=== PATIENT | female | born 1960 | race Caucasian/White ===

== ENCOUNTER 2018-11-08 06:07 | Day surgery (SDC) | payer OTHER ==
[~2018-11-08] VITALS: Ht 152.4 cm; Wt 72.8 kg
[~2018-11-08 06:07] MED LIST: ALBU90OI INH; AMOCLA875 PO; AMOX875 PO; AZIT250 PO; CYCL10 PO; FLUSAL1005 INH; HYDACE5 PO; IBUP800; IBUP800 PO; LEVO-T112 MCG PO; LEVSOD75 PO; Lamictal PO; META800 PO; Norco 10-325 T1 EACH PO; PRED20 PO; Percocet 5-3251 EACH PO; QUET100 PO; Tamiflu75 MG PO; Zofran4 MG PO
== END 2018-11-08 08:20 | disposition home or self-care (01) ==
LOC: ORSCSDS 06:07
PROVIDERS: Orthopaedic Surgery
PROC: 01N50ZZ Release Median Nerve, Open Approach (ICD-10-PCS; principal; 2018-11-08 07:30)
DX: G56.01 Carpal tunnel syndrome, right upper limb (principal); E03.9 Hypothyroidism, unspecified; Z79.899 Other long term (current) drug therapy; F17.210 Nicotine dependence, cigarettes, uncomplicated
CPT/HCPCS: J0690; J2250; J2405; J7120